=== PATIENT | male | born 1970 | race Caucasian/White ===

== ENCOUNTER 2021-05-19 20:51 | Emergency (ER) | payer OTHER, SELFPAY ==
[2021-05-19 21:02] VITALS: BP 165/103; PULSE 52; RESP 16; TEMP 36.6; O2SAT 98; BMI 28.8
--- NOTE | 2021-05-19 21:51 | ED_ITS ---
HPI - Wound/Laceration General Chief Complaint: Wound/Laceration Stated Complaint: lac at work Time Seen by Provider: 05/19/21 21:14 Source: patient Mode of arrival: ambulatory Limitations: no limitations History of Present Illness HPI narrative: Laceration to right hand index finger at the mid aspect prior to arrival occurred at work from broken glass Patient reports he is up-to-date on tetanus. Denies any thoughts of foreign bodies or bony tenderness. Denies any other injuries complaints or concerns at this time. Onset (ago): minute(s) (Prior to arrival) Extremity Location: right: hand (Index finger) Place: work Patient tetanus UTD: Yes Context: accidental Associated symptoms: pain Treatments prior to arrival: bandage and tourniquet Related Data Allergies Allergy/AdvReac Type Severity Reaction Status Date / Time No Known Allergies Allergy Verified 05/19/21 21:04 Review of Systems Review of Systems: Constitutional : No Fever, No Chills, Cardiovascular : No Chest Pain, No SOB Respiratory : No Dyspnea Gastrointestinal : No abdominal pain Musculoskeletal : No Joint Swelling Skin : positive skin laceration, No Foreign bodies, No rash, No surrounding erythema Neuro : No Weakness, No Numbness/tingling Psych : No SI/HI/thoughts of self injury Yes all other systems are reviewed and are negative [facility] Past Medical History Attestation statement: The following information was validated with the patient. Medical History No known health problems Social History Social History Advance Directives: No Physical Exam Vital Signs: Vital Signs: Last Vital Signs Temp 97.8 F 05/19/21 21:02 Pulse 52 05/19/21 21:02 Resp 16 05/19/21 21:02 BP 165/103 H 05/19/21 21:02 Pulse Ox 98 05/19/21 21:02 Body Mass Index 28.8 vital signs have been reviewed as normal and appeared to be correct. Blood pressure hypertensive 165/103 Heart rate normal. Respiration rate normal. Temperature normal. Oxygen saturation normal. Appearance: Alert. Oriented X3. No acute distress. Head: Normal external exam. Normocephalic. Atraumatic. Eyes: PERRLA. EOMI. Conjunctiva and sclera normal. Eyelids normal. ENT: Pharynx normal. Uvula midline. Moist mucous membranes. Neck: Normal inspection. Neck supple. FROM. No adenopathy.No meningeal signs. CVS: Normal heart rate and rhythm. Heart sound normal. Pulses normal throughout. Respiratory: No respiratory distress. Painless inspiration. Back: Full range of motion noted. No rashes/lesion/induration/fluctuance or signs of infection noted. Skin: Skin warm and dry. Normal skin color. Normal skin turgor. No rashes/lesions/lacerations noted. Extremities: Patient with 2 cm intermediate laceration to right hand at the mid index aspect. No foreign bodies. No bony tenderness. Patient has full range of motion of the joint. No obvious laxity to indicate ligamentous injury or tendon injury. Otherwise all other extremities exhibit normal range of motion and nontender. Neuro: Oriented X 3. No motor deficit. No sensory deficit. Reflexes normal. Normal steady gait. No focal neuro deficits noted. Vascular: + radial pulses. Normal cap refill. No cyanosis noted to upper extremity nails. Course Course Course Narrative: Patient is now status post laceration repair. Patient tolerated procedure well. No complication. No bony tenderness. No imaging indicated. No ligamentous laxity injury noted. No tendon injury noted. Patient has full range of motion. Patient is up-to-date on tetanus. Five sut[address] Will DC home with instructions return in 10-14 days for suture removal and to follow up with [facility]. Patient understands agrees with this plan. Procedures Laceration Laceration 1: Site: hand (Index finger) Side (If applicable): right Size (cm): 2 Description: linear Depth: simple, single layer Local Anesthetic: lidocaine 1% Amount of anesthesia used (mL): 5 Pre-repair: wound explored, irrigated extensively and deep structures intact Skin layer closed with: nylon Size (cm): 5-0 Number of sutures: 5 Technique: simple, interrupted MDM - Wound/Laceration Medical Records Attestation: I reviewed the patient's medical records. Discharge Plan Discharge Clinical Impression: Laceration, Work related injury Patient Disposition: Home, Self-Care Instructions: Finger Laceration (ED) Referrals: Yancy Stallworth PA [Emergency Midlevel Provider] - 10 days (Return in 10-14 days for suture removal) [facility] [Provider Group] - 2 days Stand Alone Forms: Work/School Release Print Language: [place]ese
[2021-05-19] MEDS: Lidocaine HCl 1 % MPF 5 ML VIAL SUBCUT (21:52)
== END 2021-05-19 23:04 | disposition home or self-care (01) ==
PROVIDERS: Emergency Provider Internal Medicine
DX: S61.210A Laceration without foreign body of right index finger without damage to nail, initial encounter (principal); M79.644 Pain in right finger(s); W25.XXXA Contact with sharp glass, initial encounter; Y93.9 Activity, unspecified; Y92.9 Unspecified place or not applicable; Y99.0 Civilian activity done for income or pay
CPT/HCPCS: 12001; 96372; 99283; 99284